=== PATIENT | male | born 1975 | race Caucasian/White ===

== ENCOUNTER 2016-06-20 14:08 | Inpatient (IN) | payer OTHER ==
[2016-06-20 15:35] VITALS: BMI 29.8
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
[2016-06-20] MEDS ORDERED: MENTHOL/PHENOL 1 EACH UD MM PRN (16:25)
[2016-06-20] MEDS ORDERED: P-EPHED 60MG/TRIPROLIDI 2.5MG TABLET PO PRN (16:25)
[2016-06-20] MEDS ORDERED: MAGNESIUM HYDROX 2400MG/30ML ORAL SUSPENSION 30 ML CUP PO PRN (16:25)
[2016-06-20] MEDS ORDERED: LOPERAMIDE HCL 2 MG CAPSULE PO PRN (16:25)
[2016-06-20] MEDS ORDERED: MAGNESIUM CITRATE 300 ML BOTTLE PO PRN (16:25)
[2016-06-20] MEDS ORDERED: diphenhydrAMINE HCL 50 MG CAPSULE PO PRN (16:25)
[2016-06-20] MEDS ORDERED: diazePAM 5 MG TABLET PO ONE (16:25)
[2016-06-20] MEDS ORDERED: IBUPROFEN 400 MG TABLET (FP) PO PRN (16:25)
[2016-06-20] MEDS ORDERED: guaiFENesin/D-METHORPHAN HB 10 ML UNIT-DOSE CUPS PO PRN (16:25)
[2016-06-20] MEDS ORDERED: MAG HYDROX/AL HYDROX/SIMETH 30 ML UNIT-DOSE CUP PO PRN (16:25)
[2016-06-20] MEDS ORDERED: hydrOXYzine PAMOATE 50 MG CAPSULE (FP) PO PRN (16:25)
[2016-06-20] MEDS: DOXYCYCLINE HYCLATE 100 MG CAPSULE PO SCH (18:46)
[2016-06-20] MEDS ORDERED: PREGABALIN 50 MG CAPSULE ONE (21:51)
[2016-06-20] MEDS ORDERED: PREGABALIN 100 MG CAPSULE ONE (21:52)
[2016-06-20] MEDS ORDERED: PATIENT'S OWN MEDICATION (NON-FORMULARY) (Insulin Glargine,Hum.Rec.Anlog 50 UNITS) SQ SCH (22:00)
[2016-06-20] MEDS ORDERED: PATIENT'S OWN MEDICATION (NON-FORMULARY) (Pregabalin [Lyrica -] 150 MG) PO SCH (22:00)
[2016-06-20] MEDS ORDERED: DOXYCYCLINE MONOHYDRATE 100 MG PO SCH (22:00)
[2016-06-20] MEDS: PREGABALIN 100 MG, PREGABALIN 50 MG PO SCH (22:47)
[2016-06-20] MEDS: INSULIN DETEMIR 100 UNITS/ML MDV SQ SCH (22:47)
[2016-06-20] MEDS: THIAMINE HCL 100 MG TABLET (FP) PO SCH (22:47)
[2016-06-20] MEDS: diazePAM 5 MG TABLET PO SCH (22:47)
[2016-06-20] MEDS: ACETAMINOPHEN 325 MG TABLET (FP) PO PRN (22:49)
[2016-06-21] MEDS ORDERED: PREGABALIN 50 MG CAPSULE ONE ×3 (04:15→21:30)
[2016-06-21] MEDS ORDERED: PREGABALIN 100 MG CAPSULE ONE ×3 (04:16→21:30)
[2016-06-21] MEDS ORDERED: METHADONE HCL 10 MG TABLET ONE (04:18)
[2016-06-21] MEDS ORDERED: METHADONE HCL 40 MG DISPERSABLE TABLET ONE (04:19)
[2016-06-21] MEDS: METHADONE 80 MG, METHADONE 20 MG PO SCH (05:22)
[2016-06-21] MEDS: PREGABALIN 100 MG, PREGABALIN 50 MG PO SCH ×3 (05:23→22:45)
[2016-06-21] MEDS: diazePAM 5 MG TABLET PO SCH ×3 (05:23→22:45)
[2016-06-21] MEDS: ACETAMINOPHEN 325 MG TABLET (FP) PO PRN (05:33)
[2016-06-21] MEDS ORDERED: METHADONE HCL 10 MG TABLET PO ONE (06:00)
[2016-06-21] MEDS ORDERED: ZOLPIDEM TARTRATE 5 MG TABLET PO PRN (09:17)
[2016-06-21 10:35] LABS: URINE APPEARANCE CLEAR; URINE BILIRUBIN NEGATIVE (NEGATIVE); URINE BLOOD NEGATIVE (NEGATIVE); URINE COLOR YELLOW; URINE GLUCOSE (UA) 3+ (NEGATIVE); URINE KETONE NEGATIVE (NEGATIVE); URINE LEUK ESTERASE NEGATIVE (NEGATIVE); URINE NITRITE NEGATIVE (NEGATIVE); URINE PROTEIN NEGATIVE (NEGATIVE); URINE UROBILINOGEN 4.0 E.U/dl E.U./dl (0.2-1.0)
[2016-06-21 10:39] LABS: MCH 26.9 pg (25.7-33.7); MCHC 32.5 g/dl (32.0-35.9); MEAN CELL VOLUME 82.9 fl (80-96); PLATELET COUNT 215 K/MM3 (134-434); WHITE BLOOD COUNT 8.1 K/mm3 (4.0-10.0)
[2016-06-21] MEDS: PRENATAL VITAMINS W/ FOLIC ACID TABLET (FP) PO SCH (10:44)
[2016-06-21] MEDS: DOXYCYCLINE HYCLATE 100 MG CAPSULE PO SCH ×2 (10:45→18:32)
[2016-06-21] MEDS: diazePAM 5 MG TABLET PO PRN ×2 (10:47→18:30)
[2016-06-21] MEDS: NICOTINE POLACRILEX 2 MG GUM BC PRN ×2 (10:48→22:49)
--- NOTE | 2016-06-21 10:48 | PN ---
S CIWA - CIWA Score Nausea/Vomitin-Mild Nausea/No Vomiting Muscle Tremors: 4-Moderate,w/Arms Extend Anxiety: 4-Mod. Anxious/Guarded Agitation: 4-Moderately Restless Paroxysmal Sweats: 3 Orientation: 0-Oriented Tacttile Disturbances: 0-None Auditory Disturbances: 0-None Visual Disturbances: 0-None Headache: 0-None Present CIWA-Ar Total Score: 16 BHS Progress Note (SOAP) Subjective: Anxiety,tremors,sweating,interrupted sleep,restless Objective: 06/21/16 10:47 Vital Signs - 8 hr 06/21/16 06/21/16 03:30 06:24 Temperature 96.9 F L Pulse Rate 57 L Respiratory 18 18 Rate Blood Pressure 98/63 Laboratory Last Values POC Glucometer 97 UNITS (()) 06/21/16 05:31 Assessment: 06/21/16 10:48 Withdrawal sx. Plan: Continue detox
[2016-06-21 10:50] LABS: ALK PHOS 78 U/L (45-117); ANION GAP 8 (8-16); BILIRUBIN,TOTAL 0.4 mg/dL (0.2-1.0); CALCIUM 8.1 mg/dL (8.5-10.1); CO2 27 mmol/L (21-32); CREATININE 0.8 mg/dL (0.7-1.3); GLUCOSE,RANDOM 104 mg/dL (74-106); SGOT/AST 230 U/L (15-37); SGPT/ALT 161 U/L (12-78); TOT PROT 6.7 g/dl (6.4-8.2)
[2016-06-21] MEDS: OMEGA-3 ACID ETHYL ESTERS (FATTY-ACIDS) 1 GM CAPSULE (FP) PO SCH (13:16)
[2016-06-21] MEDS: CHOLECALCIFEROL (VITAMIN D3) 1,000 UNIT TABLET (FP) PO SCH ×2 (13:16→16:07)
[2016-06-21] MEDS: FENOFIBRIC ACID 135 MG CAP PO SCH (13:16)
[2016-06-21] MEDS: SILVER SULFADIAZINE 1% TOP CREAM 400 GM JAR TP SCH (15:13)
[2016-06-21] MEDS: THIAMINE HCL 100 MG TABLET (FP) PO SCH (22:45)
[2016-06-21] MEDS: INSULIN DETEMIR 100 UNITS/ML MDV SQ SCH (22:45)
--- NOTE | 2016-06-22 00:47 | EKG ---
Test Reason : Blood Pressure : / mmHG Vent. Rate : 072 BPM Atrial Rate : 072 BPM P-R Int : 204 ms QRS Dur : 106 ms QT Int : 394 ms P-R-T Axes : 065 -21 038 degrees QTc Int : 431 ms NORMAL SINUS RHYTHM POSSIBLE LEFT ATRIAL ENLARGEMENT BORDERLINE ECG NO PREVIOUS ECGS AVAILABLE Confirmed by LA AGUAYO MD ([id number]) on 06/22/2016 12:47:31 AM Referred By: Confirmed By:LA AGUAYO MD
[2016-06-22] MEDS ORDERED: PREGABALIN 100 MG CAPSULE ONE ×2 (03:07→14:30)
[2016-06-22] MEDS ORDERED: METHADONE HCL 40 MG DISPERSABLE TABLET ONE (03:07)
[2016-06-22] MEDS ORDERED: PREGABALIN 50 MG CAPSULE ONE ×2 (03:07→14:29)
[2016-06-22] MEDS ORDERED: METHADONE HCL 10 MG TABLET ONE (03:07)
[2016-06-22] MEDS: PREGABALIN 100 MG, PREGABALIN 50 MG PO SCH ×2 (05:46→14:34)
[2016-06-22] MEDS: METHADONE 80 MG, METHADONE 20 MG PO SCH (05:46)
[2016-06-22] MEDS: diazePAM 5 MG TABLET PO PRN ×2 (05:49→14:34)
[2016-06-22] MEDS ORDERED: METHADONE HCL 10 MG TABLET PO ONE (06:00)
[2016-06-22] MEDS ORDERED: diazePAM 5 MG TABLET PO SCH (10:00)
[2016-06-22] MEDS: PRENATAL VITAMINS W/ FOLIC ACID TABLET (FP) PO SCH (10:49)
[2016-06-22] MEDS: CHOLECALCIFEROL (VITAMIN D3) 1,000 UNIT TABLET (FP) PO SCH (10:50)
[2016-06-22] MEDS: DOXYCYCLINE HYCLATE 100 MG CAPSULE PO SCH (10:50)
[2016-06-22] MEDS: SILVER SULFADIAZINE 1% TOP CREAM 400 GM JAR TP SCH (10:51)
[2016-06-22] MEDS: OMEGA-3 ACID ETHYL ESTERS (FATTY-ACIDS) 1 GM CAPSULE (FP) PO SCH (10:51)
[2016-06-22] MEDS: FENOFIBRIC ACID 135 MG CAP PO SCH (10:51)
[2016-06-22] MEDS: PATIENT'S OWN MEDICATION (NON-FORMULARY) (Canagliflozin [Invokana] 100 MG) PO SCH (11:50)
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
[2016-06-22 12:55] VITALS: BP 105/70; PULSE 20; TEMP 97
--- NOTE | 2016-06-22 14:58 | PN ---
BHS COWS - Scale Resting Pulse: 0= IA 80 or Below Sweatin=Flushed/Facial Moisture Restless Observation: 1= Difficult to Sit Still Pupil Size: 0= Normal to Room Light Bone or Joint Aches: 1= Mild Discomfort Runny Nose/ Eye Tearin= Runny Nose/Eyes GI Upset > 30mins: 1= Stomach Cramp Tremor Observation of Outstretched Hands: 2= Slight Tremor Visible Yawning Observation: 1= 1-2x During Session Anxiety or Irritability: 1=Feels Anxious/Irritable Goose Flesh Skin: 3=Piloerection COWS Score: 14 [facility] Progress Note (SOAP) Subjective: Sweating, Diarrhea, Anxiety. Objective: PT. A & O X 3. 06/22/16 14:56 Vital Signs Temperature 97 F L 06/22/16 12:54 Pulse Rate 20 L 06/22/16 12:54 Respiratory Rate 70 H 06/22/16 12:54 Blood Pressure 105/70 06/22/16 12:54 O2 Sat by Pulse Oximetry (%) Laboratory Last Values WBC 8.1 K/mm3 (4.0-10.0) 06/21/16 07:45 RBC 4.83 M/mm3 (4.00-5.60) 06/21/16 07:45 Hgb 13.0 GM/dL (11.7-16.9) 06/21/16 07:45 Hct 40.0 % (35.4-49) 06/21/16 07:45 MCV 82.9 fl (80-96) 06/21/16 07:45 MCHC 32.5 g/dl (32.0-35.9) 06/21/16 07:45 RDW 15.0 % (11.9-15.9) 06/21/16 07:45 Plt Count 215 K/MM3 (134-434) 06/21/16 07:45 MPV 9.0 fl (7.5-11.1) 06/21/16 07:45 Sodium 140 mmol/L (136-145) 06/21/16 07:45 Potassium 3.8 mmol/L (3.5-5.1) 06/21/16 07:45 Chloride 105 mmol/L (98-107) 06/21/16 07:45 Carbon Dioxide 27 mmol/L (21-32) 06/21/16 07:45 Anion Gap 8 (8-16) 06/21/16 07:45 BUN 12 mg/dL (7-18) 06/21/16 07:45 Creatinine 0.8 mg/dL (0.7-1.3) 06/21/16 07:45 Creat Clearance w eGFR > 60 (>60) 06/21/16 07:45 POC Glucometer 112 UNITS (()) 06/22/16 05:47 Random Glucose 104 mg/dL (74-106) 06/21/16 07:45 Calcium 8.1 mg/dL (8.5-10.1) L 06/21/16 07:45 Total Bilirubin 0.4 mg/dL (0.2-1.0) 06/21/16 07:45 AST 230 U/L (15-37) H 06/21/16 07:45 ALT 161 U/L (12-78) H 06/21/16 07:45 Alkaline Phosphatase 78 U/L (45-117) 06/21/16 07:45 Total Protein 6.7 g/dl (6.4-8.2) 06/21/16 07:45 Albumin 3.0 g/dl (3.4-5.0) L 06/21/16 07:45 Urine Color Yellow 06/21/16 07:45 Urine Appearance Clear 06/21/16 07:45 Urine pH 6.0 (5.0-8.0) 06/21/16 07:45 Ur Specific [place] 1.015 (1.001-1.035) 06/21/16 07:45 Urine Protein Negative (NEGATIVE) 06/21/16 07:45 Urine Glucose (UA) 3+ (NEGATIVE) H 06/21/16 07:45 Urine Ketones Negative (NEGATIVE) 06/21/16 07:45 Urine Blood Negative (NEGATIVE) 06/21/16 07:45 Urine Nitrite Negative (NEGATIVE) 06/21/16 07:45 Urine Bilirubin Negative (NEGATIVE) 06/21/16 07:45 Urine Urobilinogen 4.0 e.u/dl E.U./dl (0.2-1.0) 06/21/16 07:45 Ur Leukocyte Esterase Negative (NEGATIVE) 06/21/16 07:45 RPR Titer Nonreactive (NONREACTIVE) 06/21/16 07:45 LABS NOTED. 06/22/16 14:57 Assessment: WITHDRAWAL SYMPTOMS. 06/22/16 14:57 Plan: CONTINUE DETOX.
--- NOTE | 2016-06-22 15:50 | DS ---
[facility] Detox Discharge Summary Admission Date: 06/20/16 Discharge Date: 06/22/16 - History Present History: Sedative Dependence Additional Comments: ADVISED PATIENT TO FOLLOW-UP WITH [facility] FOR GENERAL MEDICAL ASSESSMENT. Pertinent Past History: Type II DM, Osteomyelitis, Hep C, HTN. - Physical Exam Results Vital Signs: Vital Signs Temperature 97 F L 06/22/16 12:54 Pulse Rate 20 L 06/22/16 12:54 Respiratory Rate 70 H 06/22/16 12:54 Blood Pressure 105/70 06/22/16 12:54 O2 Sat by Pulse Oximetry (%) Pertinent Admission Physical Exam Findings: WITHDRAWAL SYMPTOMS. Laboratory Last Values WBC 8.1 K/mm3 (4.0-10.0) 06/21/16 07:45 RBC 4.83 M/mm3 (4.00-5.60) 06/21/16 07:45 Hgb 13.0 GM/dL (11.7-16.9) 06/21/16 07:45 Hct 40.0 % (35.4-49) 06/21/16 07:45 MCV 82.9 fl (80-96) 06/21/16 07:45 MCHC 32.5 g/dl (32.0-35.9) 06/21/16 07:45 RDW 15.0 % (11.9-15.9) 06/21/16 07:45 Plt Count 215 K/MM3 (134-434) 06/21/16 07:45 MPV 9.0 fl (7.5-11.1) 06/21/16 07:45 Sodium 140 mmol/L (136-145) 06/21/16 07:45 Potassium 3.8 mmol/L (3.5-5.1) 06/21/16 07:45 Chloride 105 mmol/L (98-107) 06/21/16 07:45 Carbon Dioxide 27 mmol/L (21-32) 06/21/16 07:45 Anion Gap 8 (8-16) 06/21/16 07:45 BUN 12 mg/dL (7-18) 06/21/16 07:45 Creatinine 0.8 mg/dL (0.7-1.3) 06/21/16 07:45 Creat Clearance w eGFR > 60 (>60) 06/21/16 07:45 POC Glucometer 112 UNITS (()) 06/22/16 05:47 Random Glucose 104 mg/dL (74-106) 06/21/16 07:45 Calcium 8.1 mg/dL (8.5-10.1) L 06/21/16 07:45 Total Bilirubin 0.4 mg/dL (0.2-1.0) 06/21/16 07:45 AST 230 U/L (15-37) H 06/21/16 07:45 ALT 161 U/L (12-78) H 06/21/16 07:45 Alkaline Phosphatase 78 U/L (45-117) 06/21/16 07:45 Total Protein 6.7 g/dl (6.4-8.2) 06/21/16 07:45 Albumin 3.0 g/dl (3.4-5.0) L 06/21/16 07:45 Urine Color Yellow 06/21/16 07:45 Urine Appearance Clear 06/21/16 07:45 Urine pH 6.0 (5.0-8.0) 06/21/16 07:45 Ur Specific [place] 1.015 (1.001-1.035) 06/21/16 07:45 Urine Protein Negative (NEGATIVE) 06/21/16 07:45 Urine Glucose (UA) 3+ (NEGATIVE) H 06/21/16 07:45 Urine Ketones Negative (NEGATIVE) 06/21/16 07:45 Urine Blood Negative (NEGATIVE) 06/21/16 07:45 Urine Nitrite Negative (NEGATIVE) 06/21/16 07:45 Urine Bilirubin Negative (NEGATIVE) 06/21/16 07:45 Urine Urobilinogen 4.0 e.u/dl E.U./dl (0.2-1.0) 06/21/16 07:45 Ur Leukocyte Esterase Negative (NEGATIVE) 06/21/16 07:45 RPR Titer Nonreactive (NONREACTIVE) 06/21/16 07:45 LABS NOTED. - Treatment Hospital Course: Detoxed Safely - Medication Discharge Medications: Ambulatory Orders Canagliflozin [Invokana] 100 mg PO DAILY 06/20/16 Cholecalciferol (Vitamin D3) [Vitamin D3 -] 5,000 unit PO DAILY 06/20/16 Doxycycline Monohydrate [Mondoxyne Nl] 100 mg PO BID 06/20/16 Esomeprazole Magnesium 40 mg PO DAILY 06/20/16 Fenofibrate Nanocrystallized [Fenofibrate] 145 mg PO DAILY 06/20/16 Insulin Glargine,Hum.rec.anlog [Lantus Solostar PEN (NF)] 50 units SQ HS Insulin Lispro [Humalog] 40 unit SQ PRN 06/20/16 Lubiprostone [Amitiza] 24 mcg PO DAILY 06/20/16 [place]-3 Fatty Acids [[place]-3] 1,000 mg PO DAILY 06/20/16 Pregabalin [Lyrica -] 150 mg PO TID 06/20/16 Zolpidem Tartrate [Ambien] 10 mg PO HS 06/20/16 - Diagnosis (1) DM2 (diabetes mellitus, type 2) Current Visit: Yes Status: Chronic Qualifiers: Diabetes mellitus complication status: without complication Diabetes mellitus intermission coordinator insulin use: with intermission coordinator use Qualified Code(s): E11.9 - Type 2 diabetes mellitus without complications (2) Hepatitis C Current Visit: Yes Status: Chronic Qualifiers: Viral hepatitis chronicity: chronic Hepatic coma status: without hepatic coma Qualified Code(s): B18.2 - Chronic viral hepatitis C (3) Hypercholesterolemia Current Visit: Yes Status: Chronic (4) Hypertension Current Visit: Yes Status: Chronic Qualifiers: Hypertension type: essential hypertension Qualified Code(s): I10 - Essential (primary) hypertension (5) Lumbar herniated disc Current Visit: Yes Status: Chronic (6) MDD (major depressive disorder), single episode, in full remission Current Visit: Yes Status: Chronic (7) Methadone maintenance therapy patient Current Visit: Yes Status: Chronic (8) Nicotine dependence Current Visit: Yes Status: Chronic Qualifiers: Nicotine product type: cigarettes Substance use status: uncomplicated Qualified Code(s): F17.210 - Nicotine dependence, cigarettes, uncomplicated (9) Opioid dependence on agonist therapy Current Visit: Yes Status: Chronic (10) Osteomyelitis of ankle Current Visit: Yes Status: Acute (11) Status post right hip replacement Current Visit: Yes Status: Chronic (12) Uncomplicated sedative, hypnotic or anxiolytic withdrawal Current Visit: Yes Status: Acute (13) Use of cane as ambulatory aid Current Visit: Yes Status: Acute - AMA Did Patient Leave Against Medical Advice: Yes (PATIENT DID NOT WANT TO STAY TO COMPLETE DETOX REGIMEN.)
[2016-06-24] MEDS ORDERED: diazePAM 5 MG TABLET PO SCH (10:00)
== END 2016-06-22 15:30 | disposition left against medical advice (07) | DRG 770 ==
LOC: YASAS 14:08 → Y3N 16:35
PROVIDERS: ADMIT Internal Medicine; ATTEND Internal Medicine
PROC: HZ2ZZZZ Detoxification Services for Substance Abuse Treatment (ICD-10-PCS; principal; 2016-06-20)
DX: F19.230 Other psychoactive substance dependence with withdrawal, uncomplicated (principal); F13.230 Sedative, hypnotic or anxiolytic dependence with withdrawal, uncomplicated; F11.20 Opioid dependence, uncomplicated; F14.20 Cocaine dependence, uncomplicated; F17.210 Nicotine dependence, cigarettes, uncomplicated; F19.24 Other psychoactive substance dependence with psychoactive substance-induced mood disorder; F32.5 Major depressive disorder, single episode, in full remission; E11.9 Type 2 diabetes mellitus without complications; Z79.4 Long term (current) use of insulin; B18.2 Chronic viral hepatitis C; E78.00 Pure hypercholesterolemia, unspecified; I10 Essential (primary) hypertension; M51.26 Other intervertebral disc displacement, lumbar region; M86.9 Osteomyelitis, unspecified; Z96.641 Presence of right artificial hip joint; R26.2 Difficulty in walking, not elsewhere classified; G40.909 Epilepsy, unspecified, not intractable, without status epilepticus; Z91.5 Personal history of self-harm
CPT/HCPCS: 36415; 80053; 81003; 85027; 86593; 93005; 93010